=== PATIENT | female | born 1965 | race Caucasian/White ===

== ENCOUNTER 2022-03-14 14:39 | Outpatient (CLI) | payer BC | END 2022-03-14 14:40 | disposition home or self-care (01) | LOC: CSHULT 14:39 | PROVIDERS: ATTEND Specialist | DX: N28.89 Other specified disorders of kidney and ureter (principal); N28.1 Cyst of kidney, acquired | CPT/HCPCS: 76770 ==

== ENCOUNTER 2022-05-28 08:06 | Outpatient (CLI) | payer BC | END 2022-05-28 08:07 | disposition home or self-care (01) | LOC: CSHCT 08:06 | PROVIDERS: ATTEND Family Medicine | DX: R22.0 Localized swelling, mass and lump, head (principal) | CPT/HCPCS: 70450 ==

== ENCOUNTER 2023-01-28 14:35 | Outpatient (CLI) | payer BC | END 2023-01-28 14:36 | disposition home or self-care (01) | LOC: CSHRAD 14:35 | PROVIDERS: ATTEND Family Medicine | DX: M89.312 Hypertrophy of bone, left shoulder (principal) ==

== ENCOUNTER 2025-03-09 08:18 | Outpatient (CLI) | payer BC | END 2025-03-09 08:19 | disposition home or self-care (01) | LOC: CSHCT 08:18 | PROVIDERS: ATTEND Physician Assistant | DX: I61.5 Nontraumatic intracerebral hemorrhage, intraventricular (principal) | CPT/HCPCS: 70450 ==